=== PATIENT | male | born 1985 | race Two or more races ===

== ENCOUNTER 2019-04-25 08:12 | Day surgery (SDC) | payer OTHER ==
[2019-04-20 11:15] VITALS: BMI 26.9
[2019-04-25] MEDS ORDERED: PROPOFOL 20 ML ONE ×2 (08:24)
[2019-04-25] MEDS ORDERED: LIDOCAINE HCL/PF 2% SDV 5ML VIAL ONE (08:24)
[2019-04-25 09:06] VITALS: TEMP 97.9
[2019-04-25 09:22] VITALS: BP 107/64; PULSE 54
[2019-04-25] MEDS ORDERED: MULTIVITAMINS (DAILY MVI) TABLET (FP) PO SCH (10:00)
--- NOTE | 2019-04-27 16:32 | PATH ---
Surgical Pathology Report Patient Name: TERESA SINGH [facility]. Rec. #: [id number] /Age/Gender: 1985 (Age: 34) / M Account: [id number] Location: [facility] Taken: 04/25/2019 Received: 04/25/2019 Reported: 04/27/2019 Physicians: Calvin Davidson M.D. Specimen(s) Received A: DUODENUM B: STOMACH C: ESOPHAGUS Clinical History Nausea Postoperative diagnosis: Mild gastritis Final Diagnosis A. DUODENUM, BIOPSY: DUODENAL MUCOSA WITH NO PATHOLOGIC FINDINGS. B. STOMACH, BIOPSY: MILD CHRONIC GASTRITIS. IMMUNOSTAIN IS NEGATIVE FOR H. PYLORI ORGANISMS. C. ESOPHAGUS, BIOPSY: HYPERPLASTIC ESOPHAGEAL (SQUAMOUS) MUCOSA WITH NUMEROUS INTRAEPITHELIAL EOSINOPHILS (40-50 IN ONE SENIOR ELECTRONICS ENGINEER HIGH POWER FIELD). (SEE NOTE). NO COLUMNAR EPITHELIUM/INTESTINAL METAPLASIA IS IDENTIFIED. Note: There is histologic overlap between features of reflux esophagitis and eosinophilic esophagitis, with intraepithelial eosinophils present in both conditions. However, eosinophilic esophagitis, more often presents with much more numerous intraepithelial eosinophils (> 25 in a pharmaceutical sales representative high power field). Based on the presence of numerous intraepithelial eosinophils in this biopsy, eosinophilic esophagitis is a strong possibility, although a severe form of reflux esophagitis cannot be excluded. Correlation with endoscopic findings (distal versus proximal involvement), clinical history (stigmata of other allergic diseases) and pH monitoring is suggested. Electronically Signed Tiff Brennan M.D. Gross Description A. Received in formalin, labeled "biopsy duodenum" is a gonzalez, irregular portion of soft tissue measuring 0.3 cm. in greatest dimension. The specimen is submitted in toto in one cassette. B. Received in formalin, labeled "biopsy stomach" are 3 gonzalez, irregular portions of soft tissue ranging from 0.1-0.4 cm. in greatest dimension. The specimens are submitted in toto in one cassette. C. Received in formalin, labeled "biopsy esophagus" is a gonzalez, irregular portion of soft tissue measuring 0.5 cm. in greatest dimension. The specimen is submitted in toto in one cassette. 04/26/2019 saudi04/26/2019
== END 2019-04-25 09:30 | disposition home or self-care (01) ==
LOC: FASU-ENDO 08:12
PROVIDERS: ATTEND Internal Medicine Gastroenterology
PROC: 0DB78ZX Excision of Stomach, Pylorus, Via Natural or Artificial Opening Endoscopic, Diagnostic (ICD-10-PCS; 2019-04-25)
PROC: 0DB68ZX Excision of Stomach, Via Natural or Artificial Opening Endoscopic, Diagnostic (ICD-10-PCS; 2019-04-25)
PROC: 0DB38ZX Excision of Lower Esophagus, Via Natural or Artificial Opening Endoscopic, Diagnostic (ICD-10-PCS; 2019-04-25)
PROC: 0DB98ZX Excision of Duodenum, Via Natural or Artificial Opening Endoscopic, Diagnostic (ICD-10-PCS; principal; 2019-04-25 08:45)
DX: K29.50 Unspecified chronic gastritis without bleeding (principal); K22.9 Disease of esophagus, unspecified; R14.0 Abdominal distension (gaseous)